=== PATIENT | female | born 1995 | race Caucasian/White ===

== ENCOUNTER 2019-07-14 14:31 | Emergency (ER) | payer OTHER ==
--- NOTE | 2019-07-14 14:59 | EDM.PDOC ---
ED HPI GENERAL MEDICAL PROBLEM - General Chief Complaint: Abdominal Pain Stated Complaint: ABDOMINAL PAIN Time Seen by Provider: 07/14/19 14:45 Source of Information: Reports: Patient History Limitations: Reports: No Limitations - History of Present Illness INITIAL COMMENTS - FREE TEXT/NARRATIVE: patient is a 23-year-old female who presents to the ER with complaints of a "pulsating, fluttering area "directly above her belly button that lasted for approximately 2 hours earlier in the day. She is concerned that she may have an abdominal aortic aneurysm because she has a family history of this and she intermittently expenses pain in this area also. he last time she experienced pain in this area was approximately 2 months ago. She also states that when she lies on her stomach she feels a lump in this area which is also concerning to her. She had initially gone to the [facility] to request this testing to be done, however they said that she would need to come here to have it done. Patient currently denies any pain, nausea, vomiting, or diarrhea. Of note she does have chronic constipation which has required numerous medications in the past. She generally has a bowel movement every 3-4 days and has been regular with this pattern. - Related Data Allergies Allergy/AdvReac Type Severity Reaction Status Date / Time No Known Allergies Allergy Verified 07/14/19 14:37 Home Meds: Home Meds Citalopram Hydrobromide [Celexa] 20 mg PO DAILY 07/14/19 [History] Lactobacillus Combination No.4 [Probiotic] 1 cap PO DAILY 07/14/19 [History] Past Medical History Psychiatric History: Reports: Anxiety - Past Surgical History HEENT Surgical History: Reports: Adenoidectomy, Oral Surgery, Tonsillectomy Social & Family History - Tobacco Use Smoking Status *Q: Never Smoker - Caffeine Use Caffeine Use: Reports: Coffee, Tea - Recreational Drug Use Recreational Drug Use: No ED ROS GENERAL - Review of Systems Review Of Systems: See Below Constitutional: Reports: No Symptoms HEENT: Reports: No Symptoms Respiratory: Reports: No Symptoms Cardiovascular: Reports: No Symptoms Endocrine: Reports: No Symptoms GI/Abdominal: Reports: No Symptoms : Reports: No Symptoms Musculoskeletal: Reports: No Symptoms ED EXAM, GI/ABD - Physical Exam Exam: See Below Exam Limited By: No Limitations General Appearance: Alert, WD/WN, No Apparent Distress Respiratory/Chest: No Respiratory Distress, Lungs Clear, Normal Breath Sounds, No Accessory Muscle Use, Chest Non-Tender Cardiovascular: Normal Peripheral Pulses, Regular Rate, Rhythm, No Edema, No Murmur GI/Abdominal Exam: Normal Bowel Sounds, Soft, Non-Tender, No Organomegaly, No Distention, No Abnormal Bruit, No Mass Neurological: Alert, Oriented, Normal Cognition Psychiatric: Normal Affect, Normal Mood Skin Exam: Warm, Dry, Intact, Normal Color, No Rash Course - Vital Signs Last Recorded V/S: Last Vital Signs Temp 98.7 F 07/14/19 14:41 Pulse 69 07/14/19 14:41 Resp 20 07/14/19 14:41 BP 119/76 07/14/19 14:41 Pulse Ox 100 07/14/19 14:41 - Re-Assessments/Exams Free Text/Narrative Re-Assessment/Exam: Patient is a patient's 23-year-old female who presents with concerns that she may have an abdominal aortic aneurysm. She states that her grandmother has a history of this, and she had a strange "pulsating fluttering" above her umbilicus today. She states that she has had pain in this area in the past however it has been 2 years since she had that pain. She also complains of feeling like there is a lump there when she lays on her stomach. On exam her your aorta is palpable, however there is no obvious bulging or enlargement. Although my suspicion for an abdominal aneurysm is low, we will complete an abdominal ultrasound of the aorta to rule it out due to the patient's concerns and family history. 07/14/19 17:30 Free Text/Narrative Re-Assessment/Exam: 07/14/19 16:26 ultrasound of aorta revealed no abnormalities. Discussed this finding with the patient and that factor such as stress or electrolyte abnormalities could play a factor in muscle twitching. Laboratory testing was offered, however patient declined at this time. She states that she will follow up with her primary care provider. I did advise that if she should worsen or she develops any concerning symptoms she concerning return to the emergency department. Departure - Departure Time of Disposition: 16:28 Disposition: Home, Self-Care 01 Condition: Good Clinical Impression: Abdominal pain Qualifiers: Abdominal location: unspecified location Qualified Code(s): R10.9 - Unspecified abdominal pain - Discharge Information *PRESCRIPTION DRUG MONITORING PROGRAM REVIEWED*: No *COPY OF PRESCRIPTION DRUG MONITORING REPORT IN PATIENT JAYLYN: No Instructions: Abdominal Pain, Adult, [place] Referrals: Lauren Rojas NP [Primary Care Provider] - Forms: ED Department Discharge Additional Instructions: You were seen in the emergency Department today with complaints of twitching, pulsating near your bellybutton. An ultrasound of your aorta was completed and showed no abnormalities. There is no evidence of an abdominal aortic aneurysm. If the symptoms continue, we recommend that she follow-up with your primary care provider or return to the ER if you have any new or worsening symptoms of concern.
--- NOTE | 2019-07-14 16:13 | US ---
Abdominal aortic ultrasound: Multiple real-time images of the abdominal aorta were obtained. Doppler evaluation also performed. Comparison: No prior abdominal imaging. Findings: Aorta shows no aneurysm. Proximal aorta has an AP dimension 2.0 cm, mid aorta has an AP dimension 2.1 cm and distal aorta has an AP dimension 1.7 cm. Both common iliac arteries appear within normal limits. Impression: 1. No abnormality is identified on abdominal aortic ultrasound. Diagnostic code #1 This report was dictated in [place] Standard Time
== END 2019-07-14 17:36 | disposition home or self-care (01) ==
LOC: JD.ED 14:31
DX: R10.9 Unspecified abdominal pain (principal); F41.9 Anxiety disorder, unspecified; Z79.899 Other long term (current) drug therapy
CPT/HCPCS: 76706; 76706-26; 99282; 99284-25

== ENCOUNTER 2021-10-04 15:24 | Inpatient (IN) | payer BC ==
[2021-10-04] MEDS ORDERED: Ondansetron 4 MG/2 ML SDV IVPUSH PRN (15:41)
[2021-10-04] MEDS ORDERED: Sodium Chloride 0.9% 10 ML Syringe FLUSH PRN (15:41)
[2021-10-04] MEDS ORDERED: Nalbuphine 10 MG/1 ML Vial IVPUSH PRN (15:41)
[2021-10-04] MEDS ORDERED: Lidocaine 1% 50 ML MDV INJECT ONE (15:41)
[2021-10-04] MEDS ORDERED: Oxytocin/Lactated Ringers 10 UNIT/1,000 ML BAG IV SCH ×2 (15:45)
[2021-10-04] MEDS ORDERED: Lidocaine 1.5% with EPINEPHrine 1:200,000 5 ML Amp ONE (16:00)
[2021-10-04] MEDS ORDERED: Bupivacaine/fentaNYL/NS 100 ML Bag EPIDUR PRN (17:02)
[2021-10-04] MEDS ORDERED: diphenhydrAMINE 50 MG/ML SDV IVPUSH PRN (17:02)
[2021-10-04] MEDS ORDERED: ePHEDrine 50 MG/ML SDV IVPUSH PRN (17:02)
[2021-10-04] MEDS ORDERED: fentaNYL 100 MCG/2 ML SDV EPIDUR PRN (17:02)
[2021-10-04] MEDS: Lactated Ringers 1,000 ML IV SCH ×2 (19:00→20:58)
[2021-10-04] MEDS ORDERED: Sodium Chloride 0.9% 10 ML Syringe FLUSH SCH (21:00)
[2021-10-05] MEDS ORDERED: Misoprostol 200 MCG Tab ONE (01:33)
[2021-10-05] MEDS ORDERED: Magnesium Hydroxide 400 MG/5 ML Susp 30 ML Cup PO PRN (02:51)
[2021-10-05] MEDS ORDERED: Hydrocortisone Acetate 25 MG Supp RECTAL PRN (02:51)
[2021-10-05] MEDS ORDERED: Benzocaine/Menthol 20%-0.5% Spray 78 GM Cannister TOP PRN (02:51)
[2021-10-05] MEDS ORDERED: Witch Hazel Medicated Pads 40/Jar TOP PRN (02:51)
[2021-10-05] MEDS ORDERED: Measles, Mumps & Rubella Vaccine 0.5 ML SDV SUBCUT ONE (02:51)
[2021-10-05] MEDS ORDERED: Oxytocin/Lactated Ringers 10 UNIT/1,000 ML BAG IV SCH (02:51)
[2021-10-05] MEDS: Ibuprofen 600 MG Tab PO PRN ×3 (06:35→21:25)
[2021-10-05] MEDS: Docusate Sodium 100 MG Cap PO PRN (06:35)
[2021-10-05] MEDS: Prenatal Multivitamin with Calcium/Folic Acid/Iron Tab PO SCH (09:01)
[2021-10-05] MEDS: Citalopram 20 MG Tab PO SCH (10:11)
[2021-10-05] MEDS: Acetaminophen 325 MG Tab PO PRN (11:04)
[2021-10-06] MEDS: Acetaminophen 325 MG Tab PO PRN ×3 (04:43→19:51)
[2021-10-06] MEDS: Prenatal Multivitamin with Calcium/Folic Acid/Iron Tab PO SCH (09:43)
[2021-10-06] MEDS: Docusate Sodium 100 MG Cap PO PRN (09:43)
[2021-10-06] MEDS: Ibuprofen 600 MG Tab PO PRN ×2 (09:43→16:47)
[2021-10-06] MEDS: Citalopram 20 MG Tab PO SCH (13:45)
[2021-10-07] MEDS: Ibuprofen 600 MG Tab PO PRN (02:50)
[2021-10-07] MEDS: Prenatal Multivitamin with Calcium/Folic Acid/Iron Tab PO SCH (08:32)
[2021-10-07] MEDS: Acetaminophen 325 MG Tab PO PRN (08:32)
[2021-10-07] MEDS: Docusate Sodium 100 MG Cap PO PRN (08:38)
[2021-10-07] MEDS: Citalopram 20 MG Tab PO SCH (15:09)
== END 2021-10-07 14:00 | disposition home or self-care (01) | DRG 560 ==
LOC: JD.OB 15:24 → JD.OBCHECK 15:24 → OBSVTOIN 15:42 → JD.OB 15:42 → JD.OBCHECK 15:42 → JD.OB 10-05 01:15
PROVIDERS: ADMIT Obstetrics & Gynecology; ATTEND Obstetrics & Gynecology
PROC: 0KQM0ZZ Repair Perineum Muscle, Open Approach (ICD-10-PCS; principal; 2021-10-05)
PROC: 3E0R3BZ Introduction of Anesthetic Agent into Spinal Canal, Percutaneous Approach (ICD-10-PCS; principal; 2021-10-05)
PROC: 10907ZC Drainage of Amniotic Fluid, Therapeutic from Products of Conception, Via Natural or Artificial Opening (ICD-10-PCS; principal; 2021-10-05)
PROC: 10E0XZZ Delivery of Products of Conception, External Approach (ICD-10-PCS; principal; 2021-10-05)
PROC: 00HU33Z Insertion of Infusion Device into Spinal Canal, Percutaneous Approach (ICD-10-PCS; principal; 2021-10-05)
DX: O48.0 Post-term pregnancy (principal); O99.344 Other mental disorders complicating childbirth; F41.9 Anxiety disorder, unspecified; Z37.0 Single live birth; Z3A.40 40 weeks gestation of pregnancy; O72.1 Other immediate postpartum hemorrhage; O70.1 Second degree perineal laceration during delivery; Z20.822 Contact with and (suspected) exposure to COVID-19
CPT/HCPCS: 01967; 36415; 51702; 59025; 59409; 80053; 82570; 83615; 84156; 85025; 86592; 86850; 86900; 86901; 90471; 90707; A9270-GY; J2300; J2590; J3010; J7120; U0002